=== PATIENT | male | born 1970 | race Two or more races ===

== ENCOUNTER 2017-11-09 19:05 | Emergency (ER) | payer OTHER ==
[~2017-11-09] VITALS: Ht 162.6 cm; Wt 70.0 kg
[2017-11-09 19:16] VITALS: BP 151/87
[2017-11-09] MEDS ORDERED: KETOROLAC 30 MG/1 ML IM ONE (19:30)
[2017-11-09] MEDS ORDERED: KETOROLAC 30 MG/1 ML ONE (19:34)
== END 2017-11-09 20:12 | disposition home or self-care (01) ==
LOC: ED 20:06
DX: S43.51XA Sprain of right acromioclavicular joint, initial encounter (principal); W01.0XXA Fall on same level from slipping, tripping and stumbling without subsequent striking against object, initial encounter; Y93.89 Activity, other specified; Y92.89 Other specified places as the place of occurrence of the external cause; Y99.8 Other external cause status
CPT/HCPCS: 29105; 73030; 96372; 99284; J1885